=== PATIENT | female | born 1940 | race Caucasian/White ===

== ENCOUNTER → 2016-04-28 | Outpatient (CLI) | payer OTHER | LOC: MMPC 11:11 | DX: E21.3 Hyperparathyroidism, unspecified (principal); F32.9 Major depressive disorder, single episode, unspecified; K21.9 Gastro-esophageal reflux disease without esophagitis; R19.7 Diarrhea, unspecified; R32 Unspecified urinary incontinence; E55.9 Vitamin D deficiency, unspecified; E78.2 Mixed hyperlipidemia | CPT/HCPCS: 99213; G0463 ==

== ENCOUNTER 2016-05-02 12:01 | Emergency (ER) | payer OTHER ==
--- NOTE | 2016-05-02 12:12 | PDOC ---
Upper Respiratory HPI - General Chief Complaint: Cough / URI Stated Complaint: cough Date Seen by Provider: 05/02/16 Time Seen by Provider: 12:09 Source: POSITIVE: Patient Exam Limitations: POSITIVE: No limitations Nurse's Notes Reviewed & Considered: Yes - History of Present Illness Initial Comments: Patient comes in today with a chief clinic of cough. Patient states she's had 3 days of increasing cough that is nonproductive. She denies any headache, no shortness of breath, no chest pain, no nausea vomiting, no fever chills or sweats, no hematuria or dysuria. She states she has chronic diarrhea that is undiagnosed having had a colonoscopy but no definitive diagnosis. She denies any history of asthma or COPD. Timing: REPORTS: Constant Duration: >24 hours Severity: Mild Modifying Factors: improves with: Exertion Similar Symptoms Previously: No Recently seen/treated/hospitalized: No Any Prior Injuries Related to Current Complaint?: No - Patient Home Medications Home Medications: Home Medications Cholecalciferol (Vitamin D3) [Vitamin D3] 1 cap PO DAILY #30 cap 01/31/14 Esomeprazole Magnesium [Nexium] 1 cap PO DAILY #90 cap 07/03/15 Venlafaxine HCl ER [Effexor Xr Cap] 1 cap PO DAILY #90 cap 07/03/15 Atenolol 1 tab PO DAILY #90 tab 08/06/15 Levothyroxine Sodium 1 tab PO DAILY #90 tab 08/07/15 Simvastatin 1 tab PO QD #90 tab 12/31/15 Tolterodine Tartrate [Detrol La] 1 tab PO QD #90 cap 01/07/16 Citalopram Hydrobromide [Citalopram Hbr] 1 tab PO DAILY #90 tab 02/18/16 - Patient Allergies Allergies/Adverse Reactions: Allergies Allergy/AdvReac Type Severity Reaction Status Date / Time codeine AdvReac Severe VOMITING Verified 05/02/16 12:08 Past Medical History - heen HEENT History: Dentures/Partials Cardiovascular History: Hypertension, Hyperlipidemia Respiratory History: Denies History Gastrointestinal History: GERD, Peptic Ulcer Disease Additional Gastrointestinal History: S/P BAYRON FUNDOPLICATION Genitourinary History: Denies History Endocrine History: Denies History, Hyperthyroidism Additional Endocrine History: HYPERPARATHYROIDISM S/P REMOVAL OF LEFT LOWER PARATHYROID ADENOMA IN 2013 Musculoskeletal History: Arthritis, Gout, Osteoarthritis, Other (please comment) Prosthesis or Implant: No Additional Musculoskeletal History: MULTIPLE BILAT FOOT SURGERIES FOR HAMMER TOES AND BUNIONS, LEFT 2ND TOE FUSION OF JOINT Neurological History: Denies History Blood Disorders: Denies History Psychiatric History: Depression History of Sexually Transmitted Diseases: No History of MDRO: No History of Other Communicable Diseases: No Alcohol Use: None Substance Use Type: None Previous Surgical History: Yes Type / Date of Surgery: REMOVAL OF ADENOMA IN 05/2013/ TONSILLECTOMY/ BLAKE/ EGD / HYST/ BAYRON FUNDOPLICATION Anesthesia Reactions: No Malignant Hyperthermia: No Significant Family History: No pertinent family hx ROS - Limitations ROS Limitations: No Limitations Constitution: REPORTS: Denies Symptoms Cardiovascular: REPORTS: Denies Cardiac Symptoms Respiratory: REPORTS: Cough Non Productive Neurological: REPORTS: Denies Neuro Symptoms Gastrointestinal: REPORTS: Diarrhea (Chronic) Endocrine: REPORTS: Denies Symptoms Musculoskeletal: REPORTS: Denies MS Symptoms Genitourinary: REPORTS: Denies Symptoms Eyes: REPORTS: Denies Symptoms ENT: REPORTS: Denies Symptoms Skin: REPORTS: Denies Skin Symptoms Lympathic: REPORTS: Denies Lympathic Symptoms Immunologic: POSITIVE: Denies Symptoms Psychiatric: POSITIVE: Denies Psych Symptoms Upper Respiratory/Fever Exam - General Appearance General Appearance: REPORTS: Alert, Cooperative, No Acute Distress, No Evidence of Trauma - HEENT HEENT: POSITIVE: Head Inspection Nml, Eyes Inspection Nml, Ears Inspection Nml, Nose Inspection Nml, Oral/Dental Inspect. Nml, Pharynx Inspect. Nml, PERRL, EOMI - Neck Neck: REPORTS: Normal Inspection, Supple - Respiratory Respiratory: REPORTS: No Respiratory Distress, Breath Sounds Normal, No Pleuritic Chest Pain, Speaks Full Sentences, No Pain on Inspiration - Abdomen Abdomen: Soft: (All Quadrants), Normal Bowel Sounds: (All Quadrants), Denies Tenderness: (All Quadrants) - Cardiovascular Cardiovascular: REPORTS: Regular Rate and Rhythm, Heart Sounds Normal - Skin Skin: REPORTS: Intact, Normal For Race, Warm, Dry, No Rash - Extremities Extremity: Non-Tender: (All Extremities), Normal ROM: (All Extremities), Normal Inspection: (All Extremities) - Neurological / Psychological Neurological: POSITIVE: Affect Apporpriate, Oriented X3 Upper Resp/Fever Progress - Results Reviewed by me Xrays/CTs/US Reviewed by me: Yes Discussed with Radiologist: No Lab Results Reviewed: Yes Lab Results:: Laboratory Results 05/02/16 Range/Units 12:15 WBC 7.65 (4.8-10.8) 10^3/uL RBC 4.77 (4.20-5.40) 10^6/uL Hgb 14.0 (12.0-16.0) g/dL Hct 42.5 (37.0-47.0) % MCV 89.1 (81-99) FL MCH 29.4 (27-31) PG MCHC 32.9 L (33-37) g/dL RDW Std Deviation 45.1 (39-50) fL RDW Coeff of Luca 14.1 (11.5-14.5) % Plt Count 310 (140-350) 10*3/uL MPV 9.3 (7.4-12.2) FL Immature Gran % (Auto) 0.3 (0-5) % Neut % (Auto) 59.3 (50-80) % Lymph % (Auto) 28.5 (10-50) % [place] % (Auto) 7.8 (5-15) % Eos % (Auto) 3.3 (0-8) % Baso % (Auto) 0.8 (0-1) % Immature Gran # (Auto) 0.02 10*3/UL Neut # (Auto) 4.54 10*3/UL Lymph # (Auto) 2.18 10*3/uL [place] # (Auto) 0.60 (0.3-0.8) 10*3/UL Eos # (Auto) 0.25 10*3/UL Baso # (Auto) 0.06 10*3/UL WBC Morphology Comment Normal morphology (NORM) Plt Morphology Comment Normal morphology (NORM) RBC Morph Comment Normal morphology (NORM) Sodium 138 (135-145) meq/L Potassium 4.5 (3.8-5.2) meq/L Chloride 103 (98-112) meq/L Carbon Dioxide 25 (23-33) meq/L Anion Gap 10 (5-20) BUN 18 (7-22) mg/dL Creatinine 1.2 (0.50-1.20) mg/dL Estimated GFR (>60 ml/min/1.73m(2)) BUN/Creatinine Ratio 15.00 (6-20) Glucose 111 H (78-110) mg/dL Calculated Osmolality 288.0 (267-292) mOsm/kg Calcium 9.9 (8.7-10.7) mg/dL Total Bilirubin 0.5 (0.3-1.2) mg/dL AST 31 (8-39) IU/L ALT 36 (9-52) IU/L Alkaline Phosphatase 123 (38-126) IU/L Total Protein 7.3 (6.1-8.0) g/dL Albumin 4.2 (3.5-4.8) g/dL Globulin 3.1 (2.50-4.10) g/dL Albumin/Globulin Ratio 1.30 (1.3-2.0) mg/g - Patient's Progress Pain Medication Addressed: POSITIVE: Not Applicable Re-Examine Time: 12:58 Status: POSITIVE: Improved MDM / ED Course: Patient was examined, blood drawn, chest x-ray was obtained. Laboratory findings: Unremarkable. Chest x-ray shows no acute cardiopulmonary decompensation. Assessment: Cough, upper respiratory infection probably viral. Plan: Discharge home on albuterol and Phenergan with codeine, follow-up with her primary care physician. Air Movement: Good Patient Care Time - Estimated PCT Patient Care Time (In Minutes): 20 Vital Signs - Recent Vital Signs Vital Signs: Vital Signs (Last 8 hours) Temp Pulse Resp BP Pulse Ox 05/02/16 12:02 96.6 F L 69 18 130/78 95 - VS Reviewed Vital Signs Reviewed: Yes Discharge Clinical Impression: Cough, Upper respiratory infection Discharge Disposition: Discharged to Home Condition: Stable Patient Instructions Given at Discharge: Upper Respiratory Infection (ED)
[2016-05-02 12:15] VITALS: RESP 18; TEMP 96.6
[2016-05-02 12:20] LABS: BASOPHILS # (AUTO) 0.06 10*3/UL; BASOPHILS % (AUTO) 0.8 % (0-1); EOSINOPHILS % (AUTO) 3.3 % (0-8); HEMATOCRIT 42.5 % (37.0-47.0); IMM GRAN % (AUTO) 0.3 % (0-5); IMM GRAN# (AUTO) 0.02 10*3/UL; LYMPHOCYTES # (AUTO) 2.18 10*3/uL; LYMPHOCYTES % (AUTO) 28.5 % (10-50); MEAN CORPUSCULAR HEMOGLOBIN 29.4 PG (27-31); MEAN CORPUSCULAR HGB CONC 32.9 g/dL (33-37); MEAN PLATELET VOLUME 9.3 FL (7.4-12.2); MONOCYTES % (AUTO) 7.8 % (5-15); NEUTROPHILS # (AUTO) 4.54 10*3/UL; NEUTROPHILS % (AUTO) 59.3 % (50-80); RDW COEFFICIENT OF VARIATION 14.1 % (11.5-14.5); RED BLOOD COUNT 4.77 10^6/uL (4.20-5.40); WHITE BLOOD COUNT 7.65 10^3/uL (4.8-10.8)
[2016-05-02 12:21] LABS: PLATELET MORPHOLOGY COMMENT NORMAL MORPHOLOGY (NORM)
[2016-05-02 12:30] LABS: BILIRUBIN,TOTAL 0.5 mg/dL (0.3-1.2); CALCIUM 9.9 mg/dL (8.7-10.7); CREATININE 1.2 mg/dL (0.50-1.20); POTASSIUM 4.5 meq/L (3.8-5.2); TOTAL PROTEIN 7.3 g/dL (6.1-8.0)
--- NOTE | 2016-05-02 15:11 | DI ---
PA /LATERAL CHEST X-RAY, 05/02/2016 12:08 PM : Clinical History: Cough. Previous Exam: None at this facility. On both views the patient took a very shallow inspiration. There is no acute soft tissue or bony abno rmality. Heart size is normal. Lungs are clear. Mediastinal structures are normal. There are no pulmo nary nodules. Reading: Normal chest x-ray for this degree of inspiratory effort.
== END 2016-05-02 13:12 | disposition home or self-care (01) ==
LOC: ER 12:01
DX: J06.9 Acute upper respiratory infection, unspecified (principal); R05 Cough
CPT/HCPCS: 36415; 71020; 80053; 85025; 99283

== ENCOUNTER → 2016-07-28 | Outpatient (CLI) | payer OTHER | LOC: MMPC 11:11 | DX: E21.3 Hyperparathyroidism, unspecified (principal); F32.9 Major depressive disorder, single episode, unspecified; K21.9 Gastro-esophageal reflux disease without esophagitis; R32 Unspecified urinary incontinence; R19.7 Diarrhea, unspecified; E55.9 Vitamin D deficiency, unspecified; E03.9 Hypothyroidism, unspecified | CPT/HCPCS: 99213; G0463 ==

== ENCOUNTER → 2016-11-18 | Outpatient (CLI) | payer OTHER ==
[2016-11-18 12:52] LABS: BUN/CREATININE RATIO 13.63 (6-20); CALCIUM 9.8 mg/dL (8.7-10.7); CHOL/HDL RATIO 1.75 RATIO (0-4.0); LDL CHOLESTEROL,CALCULATED 22.4 mg/dL
== END ==
LOC: MOB LAB 10:19
DX: E78.2 Mixed hyperlipidemia (principal); E21.3 Hyperparathyroidism, unspecified; E03.9 Hypothyroidism, unspecified; I10 Essential (primary) hypertension; E55.9 Vitamin D deficiency, unspecified
CPT/HCPCS: 36415; 80048; 80061; 82306; 84443

== ENCOUNTER 2017-10-03 17:21 | Inpatient (IN) ==
[2017-10-03] MEDS ORDERED: Sodium Chloride 0.9% 1,000 ML PRIMARY IV ONE (17:32)
[2017-10-03 18:06] LABS: BLOOD UREA NITROGEN 21 mg/dL (7-22); LIPASE 47 IU/L (23-300)
[2017-10-03 18:07] LABS: BASOPHILS # (AUTO) 0.03 10*3/UL; BASOPHILS % (AUTO) 0.1 % (0-1); EOSINOPHILS # (AUTO) 0.08 10*3/UL; EOSINOPHILS % (AUTO) 0.4 % (0-8); Hematocrit [HCT] 41.8 % (37.0-47.0); Hemoglobin [HGB] 14.5 g/dL (12.0-16.0); LYMPHOCYTES # (AUTO) 3.96 10*3/uL; MEAN CORPUSCULAR HEMOGLOBIN 30.3 PG (27-31); MEAN CORPUSCULAR HGB CONC 34.7 g/dL (33-37); MEAN CORPUSCULAR VOLUME 87.3 FL (81-99); MEAN PLATELET VOLUME 9.4 FL (7.4-12.2); MONOCYTES # (AUTO) 1.56 10*3/UL (0.3-0.8); MONOCYTES % (AUTO) 6.9 % (5-15); NEUTROPHILS # (AUTO) 16.98 10*3/UL; NEUTROPHILS % (AUTO) 74.8 % (50-80); RED BLOOD COUNT 4.79 10^6/uL (4.20-5.40)
[2017-10-03 18:08] LABS: PLATELET MORPHOLOGY COMMENT NORMAL MORPHOLOGY (NORM); RBC MORPHOLOGY COMMENT NORMAL MORPHOLOGY (NORM); WBC MORPHOLOGY COMMENT NORMAL MORPHOLOGY (NORM)
[2017-10-03 18:15] LABS: BILIRUBIN,URINE NEGATIVE (NEG); CLARITY,URINE CLEAR (CLEAR); COLOR,URINE YELLOW (Y); GLUCOSE, URINE (UA) NEGATIVE (NEG); OCCULT BLOOD,URINE SMALL (NEG); PROTEIN,URINE TRACE mg/dl (NEG)
[2017-10-03 18:17] LABS: BACTERIA,URINE MODERATE; URINE SAMPLE TYPE CATH SPECIMEN; WBC,URINE 20-30
[2017-10-03] MEDS ORDERED: Ertapenem Inj 1 GM in Sodium Chloride 0.9% 100 ML IV ONE (18:23)
--- NOTE | 2017-10-03 20:26 | DI ---
EXAM: CT Abdomen and Pelvis With Intravenous Contrast CLINICAL HISTORY: ITS.REASON Abdominal Pain Physician Notes: Tech Comments: TECHNIQUE: Axial computed tomography images of the abdomen and pelvis with intravenous contrast. COMPARISON: No relevant prior studies available. FINDINGS: Lung bases: Unremarkable. ABDOMEN: Liver: Mild fatty liver. Gallbladder and bile ducts: The gallbladder is absent. Pancreas: Unremarkable. Spleen: Unremarkable. Adrenals: Unremarkable. Kidneys and ureters: Unremarkable. No hydronephrosis. Stomach and bowel: Thickening in the cecum - proximal ascending colon. Small hiatal hernia. Surgical changes at the GE junction. PELVIS: Appendix: No findings to suggest acute appendicitis. Bladder: Few foci of air in the bladder. Reproductive: Hysterectomy. ABDOMEN and PELVIS: Intraperitoneal space: Unremarkable. Bones/joints: No acute fracture. Soft tissues: Unremarkable. Vasculature: Unremarkable. No abdominal aortic aneurysm. Lymph nodes: No enlarged lymph nodes. IMPRESSION: 1. Thickening in the cecum - proximal ascending colon. Could be from colitis/typhlitis or underlying lesion. 2. Few foci of air in the bladder. Could be from of recent instrumentation, infection with gas forming organism. No distinct fistula identified.
--- NOTE | 2017-10-03 21:45 | PDOC ---
HPI - History of Present Illness Date of Service: 10/03/17 Chief Complaint: Abdominal pain History of Present Illness: This very nice 77-year-old female who started having some abdominal pain across all of her abdomen last evening comes to the ER today to have it evaluated she denies dysuria hematuria no nausea no vomiting no chest pain on further evaluation was found to have some descending colon thickening and other findings on CT scan including some air in the bladder I discussed this with Dr. Clay Walker no acute things to do at present time. He admitted for UTI since that she had a positive UA and a white count of 22,000 C with Invanz in the ER Past Medical History Medical History: Hypertension, depression, GERD, Tobacco Use: Never Smoker In the Past 12 Months, Have Used or Abuse Any of the Following Substance: None Medication / Allergies Home Medications: Home Medications 3 Medication Instructions Recorded Confirmed Type Cholecalciferol (Vitamin D3) 1 cap PO DAILY #30 cap 01/31/14 10/03/17 History [Vitamin D3] atenolol 50 mg tablet 50 mg PO QD #90 tab 03/16/17 10/03/17 Rx esomeprazole magnesium 20 mg 20 mg PO QD #90 cap 03/16/17 10/03/17 Rx capsule,delayed release levothyroxine 50 mcg tablet 50 mcg PO QD #90 tab 03/16/17 10/03/17 Rx tolterodine ER 4 mg 4 mg PO QD #90 cap 03/16/17 10/03/17 Rx capsule,extended release 24 hr venlafaxine ER 75 mg 75 mg PO QDAY #90 cap 03/16/17 10/03/17 Rx capsule,extended release 24 hr potassium chloride ER 20 mEq 20 meq PO QDAY #1 tab 08/02/17 10/03/17 Rx tablet,extended release blood-glucose meter See Dose Instructions .ROUTE 08/04/17 Rx .MEDSUPPLY #1 ea lancets 33 gauge See Dose Instructions .ROUTE 08/06/17 08/06/17 Rx .MEDSUPPLY #100 ea blood sugar diagnostic strips See Dose Instructions .ROUTE 08/12/17 Rx .MEDSUPPLY #100 ea blood sugar diagnostic strips See Dose Instructions .ROUTE 08/12/17 Rx .MEDSUPPLY #50 ea blood glucose control, normal See Dose Instructions .ROUTE 08/18/17 Rx solution .MEDSUPPLY #1 ea lancets 30 gauge See Dose Instructions .ROUTE 08/18/17 Rx .MEDSUPPLY #100 ea Allergies/Adverse Reactions: Allergies 3 Allergy/AdvReac Type Severity Reaction Status Date / Time codeine AdvReac Severe VOMITING Verified 10/03/17 22:16 Review of Systems - Review of Systems All Systems: Reviewed & No Additional Complaints Except as Stated - Respiratory Respiratory: DENIES: Negative System Review, Cough, Sputum, Dyspnea At Rest, Dyspnea with Exertion, Pleuritic Pain, Hemoptysis, Wheezing, Other, See HPI - Cardiovascular Cardiovascular: DENIES: Negative System Review, Chest Pain, Edema, Syncope, Palpitations, Orthopnea, Paroxysmal Nocturnal Dyspnea, Other, See HPI - Gastrointestinal Gastrointestinal / Abdominal: REPORTS: Abdominal Pain Exam - Vitals Vital Signs: Vital Signs Temperature 97.4 F Temperature Source Temporal Artery Scan Pulse Rate [Pulse Oximeter 79 Right] Respiratory Rate 16 Blood Pressure [Left Arm] 131/75 Pulse Ox 96 Oxygen Delivery Method Room Air Height 5 ft 4 in Weight 210 lb - General General Appearance: No Acute Distress, Cooperative - Eye Eye Exam: POSITIVE: Normal Appearance, PERRL, EOMI, No Scleral Icterus - Neck Neck Exam: Normal Inspection, Full ROM, No Tenderness, No Lymphadenopathy, No Thyromegaly, JVP is not Raised - Respiratory Respiratory Exam: POSITIVE: Clear to Auscultation - Bilaterally, Breathing Non Labored, Normal To Percussion, Normal to Percussion and Palpation - Cardiovascular Cardiovascular Exam: POSITIVE: RRR, No Murmur, No Clicks, No Gallops, No Rubs, PMI Non-Displaced - GI/Abdominal GI/Abdominal Exam: POSITIVE: Non Distended, Soft, No Masses, Positive for RUQ Pain, No Hepatomegaly, No Splenomegaly. NEGATIVE: Bruit, Distended, Guarding, Diminished Bowel Sounds, Hypoactive Bowel Sounds, Mass, Pulsatile Mass, Rebound , Rigid, Positive for Ascites, Hepatomegaly Additional GI/Abdominal Exam Details: She only has pain on the mid right upper area when pressed on a specific spot no CVA tenderness or other pain anywhere also in her abdomen is soft - Extremities Extremities Exam: POSITIVE: Normal Inspection, Full ROM, Normal Capillary Refill , No Clubbing Present, No Edema Present, No Cyanosis Present, Negative Elise's sign, Dosalis Pedis Pulses - Stong & Regular - Neurological Neurological Exam: POSITIVE: Alert, Oriented x 3, Reflexes Normal, Normal Gait, CN II-XII Intact, No Facial Droop, Speech Intact / Clear, Moves All Extremities Equally, No Fasciculations, No Clonus Results - Labs CBC and BMP: 10/03/17 17:33 10/03/17 17:33 Assessment and Plan - Patient Problems (1) UTI (urinary tract infection) Current Visit: Yes Status: Acute Comment: invanz 1 g daily Code(s): N39.0 - Urinary tract infection, site not specified (2) Hypomagnesemia Current Visit: Yes Status: Acute Comment: 2 Grams IV Code(s): E83.42 - Hypomagnesemia (3) Hypokalemia Current Visit: Yes Status: Acute Comment: Place with normal saline +20 K at 75 Code(s): E87.6 - Hypokalemia
[2017-10-03] MEDS ORDERED: DOCUSATE 100 MG CAPSULE PO PRN (22:01)
[2017-10-03] MEDS ORDERED: LIDOCAINE W/ SODIUM BICARB 0.5 ML SYR SUBD PRN (22:01)
[2017-10-03] MEDS ORDERED: MORPHINE SULFATE 2 MG/1 ML IVP PRN (22:01)
[2017-10-03] MEDS ORDERED: CALCIUM CARBONATE 500 MG (TUMS) CHEWABLE TABLET PO PRN (22:01)
[2017-10-03] MEDS ORDERED: ACETAMINOPHEN 325 MG TABLET PO PRN (22:01)
[2017-10-03] MEDS ORDERED: ONDANSETRON 4 MG/2 ML VIAL IVP PRN (22:01)
[2017-10-03] MEDS: HEPARIN 5000 UNIT/1 ML SUBCUT SCH (22:29)
[2017-10-03] MEDS ORDERED: Magnesium Sulfate 2gm (Premix) 2 GM/50 ML BAG IV ONE (23:52)
--- NOTE | 2017-10-04 02:33 | PDOC ---
Abdomen/Flank HPI - General Chief Complaint: Abdomen Pain Stated Complaint: ABD PAIN WORSE TO RLQ SINCE YESTERDAY Date Seen by Provider: 10/03/17 Time Seen by Provider: 17:20 Source: POSITIVE: Patient, Other (daughter) Exam Limitations: POSITIVE: No limitations Nurse's Notes Reviewed & Considered: Yes - History of Present Illness Initial Comments: The patient is a 77-year-old female who presents to the emergency room with her daughter. Patient states that for the past 24 hours she has had lower abdominal pain, right greater than left. No vomiting. No diarrhea, melena, hematochezia, hematemesis, dysuria or hematuria. No fevers. Patient has had a cholecystectomy and hysterectomy. She last ate about 24 hours [employer]. Patient has had surgery for gastroesophageal reflux. Patient states that the pain presently is somewhat less than it was earlier in the day. Body Location Affected: REPORTS: Abdomen Timing: REPORTS: Constant Duration: <24 hours (Approximately 24 hours) Severity: Moderate Quality: REPORTS: "Pain" Abdominal Pain Onset Location: REPORTS: RUQ, LUQ Abdominal Pain Radiation: REPORTS: No radiation Context: REPORTS: None Modifying Factors: improves with: Nothing Associated Symptoms: REPORTS: Denies symptoms Similar Symptoms Previously: No Recent Care Received: REPORTS: Denies Any Prior Injuries Related to Current Complaint?: No - Patient Home Medications Home Medications: Home Medications Cholecalciferol (Vitamin D3) [Vitamin D3] 1 cap PO DAILY #30 cap 01/31/14 atenolol 50 mg tablet 50 mg PO QD #90 tab 03/16/17 esomeprazole magnesium 20 mg capsule,delayed release 20 mg PO QD #90 cap levothyroxine 50 mcg tablet 50 mcg PO QD #90 tab 03/16/17 tolterodine ER 4 mg capsule,extended release 24 hr 4 mg PO QD #90 cap 03/16/17 venlafaxine ER 75 mg capsule,extended release 24 hr 75 mg PO QDAY #90 cap potassium chloride ER 20 mEq tablet,extended release 20 meq PO QDAY #1 tab 08/02 blood-glucose meter See Dose Instructions .ROUTE .MEDSUPPLY #1 ea 08/04/17 lancets 33 gauge See Dose Instructions .ROUTE .MEDSUPPLY #100 ea 08/06/17 blood sugar diagnostic strips See Dose Instructions .ROUTE .MEDSUPPLY #100 ea blood sugar diagnostic strips See Dose Instructions .ROUTE .MEDSUPPLY #50 ea 06/27 blood glucose control, normal solution See Dose Instructions .ROUTE .MEDSUPPLY # 1 ea 08/18/17 lancets 30 gauge See Dose Instructions .ROUTE .MEDSUPPLY #100 ea 08/18/17 - Patient Allergies Allergies/Adverse Reactions: Allergies 3 Allergy/AdvReac Type Severity Reaction Status Date / Time codeine AdvReac Severe VOMITING Verified 10/03/17 22:16 Past Medical History - heen HEENT History: Dentures/Partials Cardiovascular History: Hypertension, Hyperlipidemia Respiratory History: Denies History Additional Respiratory History: former smoker, quit 45 yrs ago Gastrointestinal History: GERD, Peptic Ulcer Disease Additional Gastrointestinal History: S/P BAYRON FUNDOPLICATION Genitourinary History: Denies History Endocrine History: Type 2 Diabetes (diet), Hyperthyroidism Additional Endocrine History: HYPERPARATHYROIDISM S/P REMOVAL OF LEFT LOWER PARATHYROID ADENOMA IN 2013 Musculoskeletal History: Arthritis, Gout, Osteoarthritis, Other (please comment) Prosthesis or Implant: No Additional Musculoskeletal History: MULTIPLE BILAT FOOT SURGERIES FOR HAMMER TOES AND BUNIONS, LEFT 2ND TOE FUSION OF JOINT Neurological History: Denies History Blood Disorders: Denies History Psychiatric History: Depression History of Sexually Transmitted Diseases: No Female Reproductive History: Denies History Obstetrical History: Denies History Cancer History: Other (please comment) In Past Year Been Physically Harmed or Verbally Threatened: No History of MDRO: No History of Other Communicable Diseases: No Tobacco Use: Never Smoker Alcohol Use: None In the Past 12 Months, Have Used or Abuse Any Substance: None Previous Surgical History: Yes Type / Date of Surgery: REMOVAL OF ADENOMA IN 05/2013/ TONSILLECTOMY/ BLAKE/ EGD / HYST/ BAYRON FUNDOPLICATION Anesthesia Reactions: No Malignant Hyperthermia: No Significant Family History: No pertinent family hx Past Medical History Reviewed: Reviewed - No Changes ROS - Limitations ROS Limitations: No Limitations Constitution: REPORTS: Denies Symptoms Cardiovascular: REPORTS: Denies Cardiac Symptoms Respiratory: REPORTS: Denies Resp Symptoms Neurological: REPORTS: Denies Neuro Symptoms Gastrointestinal: REPORTS: Abdominal Pain Endocrine: REPORTS: Denies Symptoms Musculoskeletal: REPORTS: Denies MS Symptoms Genitourinary: REPORTS: Denies Symptoms Eyes: REPORTS: Denies Symptoms ENT: REPORTS: Denies Symptoms Skin: REPORTS: Denies Skin Symptoms Lympathic: REPORTS: Denies Lympathic Symptoms Immunologic: POSITIVE: Denies Symptoms Psychiatric: POSITIVE: Denies Psych Symptoms Abdominal/Flank Pain PE - General Appearance General Appearance: POSITIVE: Alert, Cooperative, No Acute Distress, No Evidence of Trauma - HEENT HEENT: POSITIVE: Head Inspection Nml, Eyes Inspection Nml, Ears Inspection Nml, Nose Inspection Nml, Oral/Dental Inspect. Nml, Pharynx Inspect. Nml, PERRL, EOMI - Neck Neck: POSITIVE: Normal Inspection, No Apparent Injury - Respiratory Respiratory: POSITIVE: No Respiratory Distress, Breath Sounds Normal, Chest Non- Tender - Cardiovascular Cardiovascular: POSITIVE: Regular Rate and Rhythm, Heart Sounds Normal, Equal Pulses, Strong Pulses Peripheral Pulses: Radial (R): 2+, Radial (L): 2+ - Chest Chest: POSITIVE: Non Tender - Abdomen Abdomen: Soft: (All Quadrants), Normal Bowel Sounds: (All Quadrants), Denies Tenderness: (RUQ), (LUQ), No Splenomegaly: (All Quadrants), No Hepatomegaly: ( All Quadrants), No Guarding: (All Quadrants), No Rebound: (All Quadrants), No Palpable Pulse: (All Quadrants), No Palpabale Mass: (All Quadrants), No Distention: (All Quadrants), No Rigidity: (All Quadrants), Tenderness Noted: ( RLQ), (LLQ) Additional Abdominal Details: Abdominal examination shows bowel sounds to be active. Patient does complain of pain on direct palpation in the lower abdomen, especially right lower quadrant. No masses, organomegaly or rebound. - Back Back: POSITIVE: Normal Inspection. NEGATIVE: CVA Tenderness (R), CVA Tenderness (L) - Skin Skin: POSITIVE: Intact, Normal For Race, Warm, Dry, No Rash - Extremities Extremity: Non-Tender: (All Extremities), Normal ROM: (All Extremities), Normal Inspection: (All Extremities) - Neurological Neurological: POSITIVE: Affect Apporpriate, Oriented X3, executive administrative asst Normal As Tested, Motor Normal, Sensation Normal - Psychological Psychiatric: POSITIVE: Affect Appropriate, Mood Appropriate Images - Complete Complete: 1 - Area of described pain Abdomen Progress - Results Reviewed by me Xrays/CTs/US Reviewed by me: Yes Discussed with Radiologist: Yes Radiology Findings: CT scan abdomen with IV contrast read by radiologist as showing some thickening of the cecum and proximal ascending colon compatible with colitis/typhlitis Lab Results Reviewed by Me: Yes (pyuria on catheterized urinalysis; white blood cell count 22,700) CBC and BMP: 10/03/17 17:33 10/03/17 17:33 Lab Results:: Laboratory Results 3 10/03/17 10/03/17 10/03/17 17:33 17:33 17:33 WBC 22.70 H RBC 4.79 Hgb 14.5 Hct 41.8 MCV 87.3 MCH 30.3 MCHC 34.7 RDW Std Deviation 43.0 RDW Coeff of Luca 13.6 Plt Count 345 MPV 9.4 Immature Gran % (Auto) 0.4 Neut % (Auto) 74.8 Lymph % (Auto) 17.4 [place] % (Auto) 6.9 Eos % (Auto) 0.4 Baso % (Auto) 0.1 Immature Gran # (Auto) 0.09 Neut # (Auto) 16.98 Lymph # (Auto) 3.96 [place] # (Auto) 1.56 H Eos # (Auto) 0.08 Baso # (Auto) 0.03 WBC Morphology Comment Normal morphology Plt Morphology Comment Normal morphology RBC Morph Comment Normal morphology Sodium 135 Potassium 3.0 L Chloride 95 L Carbon Dioxide 27 Anion Gap 13 BUN 21 Creatinine 1.0 BUN/Creatinine Ratio 21.00 H Glucose 139 H Calculated Osmolality 284.0 Lactic Acid Calcium 10.1 Magnesium Total Bilirubin 1.1 AST 30 ALT 37 Alkaline Phosphatase 99 Total Protein 7.1 Albumin 4.0 Globulin 3.1 Albumin/Globulin Ratio 1.20 L Amylase 59 Lipase 47 Ur Collection Type Cath specimen Urine Color Yellow Urine Clarity Clear Urine pH 6.0 Ur Specific [place] 1.020 Urine Protein Trace Urine Glucose (UA) Negative Urine Ketones Negative Urine Occult Blood Small H Urine Nitrate Negative Urine Bilirubin Negative Urine Urobilinogen 2.0 Ur Leukocyte Esterase Trace Urine RBC 3-5 Urine WBC 20-30 Ur Squamous Epith Cells None Ur Renal Epithelial Cell None Urine Crystals None Urine Bacteria Moderate H Urine Casts None Urine Mucus None Urine Trichomonas None Urine Yeast None Ur Culture Indicated? Culture set 3 10/03/17 10/03/17 17:33 18:20 WBC RBC Hgb Hct MCV MCH MCHC RDW Std Deviation RDW Coeff of [place] Plt Count MPV Immature Gran % (Auto) Neut % (Auto) Lymph % (Auto) [place] % (Auto) Eos % (Auto) Baso % (Auto) Immature Gran # (Auto) Neut # (Auto) Lymph # (Auto) [place] # (Auto) Eos # (Auto) Baso # (Auto) WBC Morphology Comment Plt Morphology Comment RBC Morph Comment Sodium Potassium Chloride Carbon Dioxide Anion Gap BUN Creatinine BUN/Creatinine Ratio Glucose Calculated Osmolality Lactic Acid 1.5 Calcium Magnesium 1.4 L Total Bilirubin AST ALT Alkaline Phosphatase Total Protein Albumin Globulin Albumin/Globulin Ratio Amylase Lipase Ur Collection Type Urine Color Urine Clarity Urine pH Ur Specific [place] Urine Protein Urine Glucose (UA) Urine Ketones Urine Occult Blood Urine Nitrate Urine Bilirubin Urine Urobilinogen Ur Leukocyte Esterase Urine RBC Urine WBC Ur Squamous Epith Cells Ur Renal Epithelial Cell Urine Crystals Urine Bacteria Urine Casts Urine Mucus Urine Trichomonas Urine Yeast Ur Culture Indicated? - Patient's Progress Pain Medication Addressed: POSITIVE: Patient Refused School/Work Release Addressed: POSITIVE: Not Applicable Re-examine Time: 20:25 Re-Examine Comment: 2 blood cultures drawn and urine culture pending. Patient given a gram of Invanz in the emergency room. Case discussed with , hospitalist, and patient will be admitted for further evaluation and treatment. Status: POSITIVE: Improved, Re-Examined - Consult Counseled: POSITIVE: Patient, Family, RE: Lab Results, RE: Radiology Results, RE : DX, RE: Need for F/U Patient Care Time - Estimated PCT Patient Care Time (In Minutes): 60 Vital Signs - Recent Vital Signs Vital Signs: Vital Signs (Last 8 hours) Temp Pulse Pulse Resp BP Pulse Ox 10/04/17 00:41 98.0 F 78 20 125/59 94 10/03/17 22:10 97.5 F 105 H 21 144/78 93 10/03/17 22:02 94 - VS Reviewed Vital Signs Reviewed: Yes Discharge Clinical Impression: Abdominal pain, Urinary tract infection Discharge Disposition: Admit to Inpatient Condition: Stable Date Decision to Admit to Inpatient: 10/03/17 Time Decision to Admit to Inpatient: 20:45
[2017-10-04] MEDS: LEVOTHYROXINE 50 MCG TABLET PO SCH (04:57)
[2017-10-04] MEDS: HEPARIN 5000 UNIT/1 ML SUBCUT SCH ×3 (05:00→21:10)
[2017-10-04 05:11] LABS: BASOPHILS # (AUTO) 0.04 10*3/UL; BASOPHILS % (AUTO) 0.2 % (0-1); EOSINOPHILS # (AUTO) 0.13 10*3/UL; EOSINOPHILS % (AUTO) 0.7 % (0-8); Hematocrit [HCT] 39.8 % (37.0-47.0); Hemoglobin [HGB] 13.7 g/dL (12.0-16.0); LYMPHOCYTES # (AUTO) 4.27 10*3/uL; MEAN CORPUSCULAR HEMOGLOBIN 30.6 PG (27-31); MEAN CORPUSCULAR HGB CONC 34.4 g/dL (33-37); MEAN CORPUSCULAR VOLUME 88.8 FL (81-99); MEAN PLATELET VOLUME 9.6 FL (7.4-12.2); MONOCYTES # (AUTO) 1.35 10*3/UL (0.3-0.8); MONOCYTES % (AUTO) 7.4 % (5-15); NEUTROPHILS # (AUTO) 12.47 10*3/UL; RED BLOOD COUNT 4.48 10^6/uL (4.20-5.40)
[2017-10-04 05:14] LABS: PLATELET MORPHOLOGY COMMENT NORMAL MORPHOLOGY (NORM); RBC MORPHOLOGY COMMENT NORMAL MORPHOLOGY (NORM); WBC MORPHOLOGY COMMENT NORMAL MORPHOLOGY (NORM)
[2017-10-04 05:31] LABS: BLOOD UREA NITROGEN 18 mg/dL (7-22); SERUM ALBUMIN 3.4 g/dL (3.5-4.8)
[2017-10-04] MEDS: Ertapenem Inj 1 GM in Sodium Chloride 0.9% 100 ML IV SCH (08:45)
[2017-10-04] MEDS: ATENOLOL 50 MG TABLET PO SCH (08:46)
[2017-10-04] MEDS: VENLAFAXINE XR 75 MG CAP PO SCH (08:46)
[2017-10-04] MEDS: CHOLECALCIFEROL 1000 IU TABLET PO SCH (08:46)
[2017-10-04] MEDS: Esomeprazole DR 20mg Capsule PO SCH (08:46)
[2017-10-04] MEDS: Tolterodine LA Cap 4 MG CAP PO SCH (08:46)
[2017-10-04] MEDS: POTASSIUM CHLORIDE 20 MEQ TAB PO SCH ×2 (08:46→21:09)
[2017-10-04] MEDS ORDERED: POTASSIUM CHLORIDE 20 MEQ TAB PO SCH (09:00)
--- NOTE | 2017-10-04 11:25 | PDOC(PROG) ---
Interval History: Patient is doing much better today more feels more like her baseline less pain in her right middle upper quadrant quadrant even on palpation no nausea or vomiting Objective : Data - Labs CBC and BMP: 10/04/17 04:47 10/04/17 04:47 Objective : Exam - General General Appearance: No Acute Distress, Cooperative - Head Head Exam: Normal Inspection - Respiratory Respiratory Exam: Clear to Auscultation - Bilaterally, Breathing Non Labored, Normal To Percussion, Normal to Percussion and Palpation - Cardiovascular Cardiovascular Exam: RRR, No Murmur, No Clicks, No Gallops, No Rubs, PMI Non- Displaced - GI/Abdominal Additional GI/Abdominal Exam Details: Very mild right upper middle quadrant pain no guarding or rebound - Extremities Extremities Exam: No Clubbing Present, No Edema Present, No Cyanosis Present - Neurological Neurological Exam: Alert, Oriented x 3, Reflexes Normal, Normal Gait, CN II-XII Intact, No Facial Droop, Moves All Extremities Equally Assessment and Plan - Patient Problems (1) Colitis Current Visit: Yes Status: Acute Comment: Continue Invanz 1 g daily discussed with general surgery and Dr. Malone radiology most likely colitis as per Dr. Walker she will be following up with him as an outpatient she will need 3 days of IV antibiotics and then 10 days of oral and follow up with him before the end of her course. I let the patient know this. Code(s): K52.9 - Noninfective gastroenteritis and colitis, unspecified (2) UTI (urinary tract infection) Current Visit: Yes Status: Acute Comment: Continue Invanz 1 g daily Code(s): N39.0 - Urinary tract infection, site not specified (3) Hypomagnesemia Current Visit: Yes Status: Acute Comment: Replaced Code(s): E83.42 - Hypomagnesemia (4) Hypokalemia Current Visit: Yes Status: Acute Comment: Replacing with IV fluids Code(s): E87.6 - Hypokalemia
[2017-10-05] MEDS: LEVOTHYROXINE 50 MCG TABLET PO SCH (04:55)
[2017-10-05] MEDS: HEPARIN 5000 UNIT/1 ML SUBCUT SCH ×3 (05:00→21:12)
[2017-10-05 06:43] LABS: BASOPHILS # (AUTO) 0.04 10*3/UL; BASOPHILS % (AUTO) 0.3 % (0-1); EOSINOPHILS # (AUTO) 0.45 10*3/UL; EOSINOPHILS % (AUTO) 3.5 % (0-8); Hematocrit [HCT] 39.3 % (37.0-47.0); Hemoglobin [HGB] 13.2 g/dL (12.0-16.0); LYMPHOCYTES # (AUTO) 3.94 10*3/uL; MEAN CORPUSCULAR HEMOGLOBIN 30.2 PG (27-31); MEAN CORPUSCULAR HGB CONC 33.6 g/dL (33-37); MEAN CORPUSCULAR VOLUME 89.9 FL (81-99); MEAN PLATELET VOLUME 9.1 FL (7.4-12.2); MONOCYTES # (AUTO) 0.94 10*3/UL (0.3-0.8); MONOCYTES % (AUTO) 7.3 % (5-15); NEUTROPHILS # (AUTO) 7.38 10*3/UL; NEUTROPHILS % (AUTO) 57.6 % (50-80); RED BLOOD COUNT 4.37 10^6/uL (4.20-5.40)
[2017-10-05 06:50] LABS: PLATELET MORPHOLOGY COMMENT NORMAL MORPHOLOGY (NORM); RBC MORPHOLOGY COMMENT NORMAL MORPHOLOGY (NORM); WBC MORPHOLOGY COMMENT NORMAL MORPHOLOGY (NORM)
[2017-10-05 07:08] LABS: BLOOD UREA NITROGEN 15 mg/dL (7-22); BUN/CREATININE RATIO 16.66 (6-20); SERUM ALBUMIN 3.2 g/dL (3.5-4.8)
[2017-10-05] MEDS: Ertapenem Inj 1 GM in Sodium Chloride 0.9% 100 ML IV SCH (08:30)
--- NOTE | 2017-10-05 10:54 | PDOC(PROG) ---
Date and Time of Service: 10/05/2017 1050 AM Interval History: Subjective Patient came into the hospital with history of abdominal pain that started first on Wednesday was diffuse vomiting and on Wednesday was more towards the right side of the abdomen and because of that she came into the hospital. A CT of the abdomen did show colitis or typhlitis of the right cecum she was admitted to the hospital started on IV antibiotics. She denied urinary symptoms. She said she feels better today than before no abdominal pain the area is somewhat tender but not as before. She did say that she had diarrhea yesterday and today although she said she's been having diarrhea for a long time and she recently started using Rafa fiber. She is hungry she wants to eat. She wants to go home today. Objective : Data - Labs CBC and BMP: 10/05/17 06:41 10/05/17 06:41 Objective : Exam - General General Appearance: No Acute Distress, Cooperative, Obese - Head Head Exam: Normal Inspection - Eye Eye Exam: Normal Appearance - ENT ENT Exam: Normal Exam - Respiratory Respiratory Exam: Clear to Auscultation - Bilaterally - Cardiovascular Cardiovascular Exam: RRR - GI/Abdominal GI/Abdominal Exam: Normal Bowel Sounds, Non Tender, Non Distended, Soft, No Organomegaly Additional GI/Abdominal Exam Details: Abdomen is soft there is no significant tenderness in the abdomen. There is no rebound. - Rectal Rectal Exam: Deferred - External Exam: Deferred Exam: Deferred - Extremities Extremities Exam: Normal Inspection - Back Back Exam: Normal Inspection - Neurological Neurological Exam: Alert, Oriented x 3, CN II-XII Intact, No Facial Droop, Speech Intact / Clear, Moves All Extremities Equally - Psychiatric Psychiatric Exam: Normal Affect - Integumentary Integumentary Exam: Normal Color Assessment and Plan - Patient Problems (1) Colitis Current Visit: Yes Status: Acute Comment: She was started on antibiotics with Invanz will continue. Etiology is not clear. This was discussed with Dr. Walker by Dr. Ramirez and he recommended seeing her as an outpatient. We'll book her an appointment once we discharge her home. I think will give another dose of IV tomorrow maybe home tomorrow. Will advance her diet today. Will send stool for C. difficile. I did convince her to stay another day. Code(s): K52.9 - Noninfective gastroenteritis and colitis, unspecified (2) UTI (urinary tract infection) Current Visit: Yes Status: Acute Comment: There is growth of gram-negative bacilli in the urine continue current antibiotics. Code(s): N39.0 - Urinary tract infection, site not specified (3) Hypomagnesemia Current Visit: Yes Status: Acute Comment: This was replaced Code(s): E83.42 - Hypomagnesemia (4) Hypokalemia Current Visit: Yes Status: Acute Comment: This was replaced Code(s): E87.6 - Hypokalemia (5) Hypothyroidism Current Visit: Yes Status: Acute Comment: Same medications Code(s): E03.9 - Hypothyroidism, unspecified (6) Hypertension Current Visit: Yes Status: Acute Comment: Continue atenolol Code(s): I10 - Essential (primary) hypertension (7) Depression Current Visit: No Status: Acute Onset Date: 07/13/13 Comment: Continue Effexor Code(s): F32.9 - Major depressive disorder, single episode, unspecified Qualifiers: Depression Type: major depressive disorder Major depression recurrence: recurrent Active/Remission status: in full remission Qualified Code(s): F33.42 - Major depressive disorder, recurrent, in full remission
[2017-10-05] MEDS: ATENOLOL 50 MG TABLET PO SCH (11:02)
[2017-10-05] MEDS: VENLAFAXINE XR 75 MG CAP PO SCH (11:02)
[2017-10-05] MEDS: Esomeprazole DR 20mg Capsule PO SCH (11:02)
[2017-10-05] MEDS: Tolterodine LA Cap 4 MG CAP PO SCH (11:02)
[2017-10-05] MEDS: CHOLECALCIFEROL 1000 IU TABLET PO SCH (11:02)
[2017-10-05] MEDS: POTASSIUM CHLORIDE 20 MEQ TAB PO SCH (11:18)
[2017-10-06] MEDS: LEVOTHYROXINE 50 MCG TABLET PO SCH (05:11)
[2017-10-06] MEDS: HEPARIN 5000 UNIT/1 ML SUBCUT SCH (05:12)
[2017-10-06 05:22] LABS: BASOPHILS # (AUTO) 0.04 10*3/UL; BASOPHILS % (AUTO) 0.3 % (0-1); EOSINOPHILS # (AUTO) 0.44 10*3/UL; EOSINOPHILS % (AUTO) 3.5 % (0-8); Hematocrit [HCT] 38.8 % (37.0-47.0); Hemoglobin [HGB] 13.1 g/dL (12.0-16.0); LYMPHOCYTES # (AUTO) 3.57 10*3/uL; MEAN CORPUSCULAR HEMOGLOBIN 30.3 PG (27-31); MEAN CORPUSCULAR HGB CONC 33.8 g/dL (33-37); MEAN CORPUSCULAR VOLUME 89.8 FL (81-99); MEAN PLATELET VOLUME 9.2 FL (7.4-12.2); MONOCYTES # (AUTO) 0.91 10*3/UL (0.3-0.8); MONOCYTES % (AUTO) 7.3 % (5-15); NEUTROPHILS # (AUTO) 7.51 10*3/UL; NEUTROPHILS % (AUTO) 59.9 % (50-80); RED BLOOD COUNT 4.32 10^6/uL (4.20-5.40)
[2017-10-06 05:33] LABS: PLATELET MORPHOLOGY COMMENT NORMAL MORPHOLOGY (NORM); RBC MORPHOLOGY COMMENT NORMAL MORPHOLOGY (NORM); WBC MORPHOLOGY COMMENT NORMAL MORPHOLOGY (NORM)
[2017-10-06 06:45] VITALS: BP 136/67; RESP 16; TEMP 97.8; O2SAT 95
[2017-10-06] MEDS: Esomeprazole DR 20mg Capsule PO SCH (09:21)
[2017-10-06] MEDS: ATENOLOL 50 MG TABLET PO SCH (09:21)
[2017-10-06] MEDS: CHOLECALCIFEROL 1000 IU TABLET PO SCH (09:21)
[2017-10-06] MEDS: Tolterodine LA Cap 4 MG CAP PO SCH (09:22)
[2017-10-06] MEDS: Ertapenem Inj 1 GM in Sodium Chloride 0.9% 100 ML IV SCH (09:22)
[2017-10-06] MEDS: VENLAFAXINE XR 75 MG CAP PO SCH (09:22)
--- NOTE | 2017-10-06 09:47 | DCSUMMARY ---
Hospitalization Summary Admit Date: 10/03/2017 Discharge Date: 10/06/17 Hospital Course: Discharge diagnoses 1. Thickening in the cecum and proximal ascending colon could be typhlitis or colitis 2. Urinary tract infection 3. Hypertension 4. Depression 5. Hypothyroidism 6. History of GERD Hospital course This is a 77 years old female with medical history significant for history of hypertension, depression and hypothyroidism who came into the hospital with history of abdominal pain felt across the abdomen that started the day before admission. The pain then felt more in the right side of the abdomen because of the pain itself and the severity of it she came into the ER. The CT scan of the abdomen showed thickening of the cecum and proximal ascending colon could be typhlitis or colitis there were also some air in the bladder itself, the patient though denied urinary symptoms. the patient was admitted to the hospital by Dr. Ramirez please see his note. Her white count was elevated 22,000 when she came in. Blood culture was sent and addition to urine culture. She was started on Invanz. Gradually her symptoms started to improve and the white count also started to come down. I saw the patient on the her white count went down to 12,000 she denied pain she was not getting any pain medication. We advanced her diet kept her for another day . On on the day of discharge she still was feeling better denied complaint. There was no tenderness in the abdomen. We felt that she could be discharged home on oral course of antibiotics. She will need follow-up with Dr. Walker and her PCP. Urine culture did show growth of Escherichia coli. She did get 3 days of Invanz for it. The etiology of the colitis/typhlitis is not clear. I did send a C. difficile and that was negative. She will follow-up with Dr. Walker and then decide if she need to have a colonoscopy down the road. Laboratory Results 10/06/17 Range/Units 05:15 WBC 12.53 H (4.8-10.8) 10^3/uL RBC 4.32 (4.20-5.40) 10^6/uL Hgb 13.1 (12.0-16.0) g/dL Hct 38.8 (37.0-47.0) % MCV 89.8 (81-99) [place] MCH 30.3 (27-31) PG MCHC 33.8 (33-37) g/dL RDW Std Deviation 42.9 (39-50) fL RDW Coeff of Luca 13.3 (11.5-14.5) % Plt Count 297 (140-350) 10*3/uL MPV 9.2 (7.4-12.2) [place] Immature Gran % (Auto) 0.5 (0-5) % Neut % (Auto) 59.9 (50-80) % Lymph % (Auto) 28.5 (10-50) % [place] % (Auto) 7.3 (5-15) % Eos % (Auto) 3.5 (0-8) % Baso % (Auto) 0.3 (0-1) % Immature Gran # (Auto) 0.06 10*3/UL Neut # (Auto) 7.51 10*3/UL Lymph # (Auto) 3.57 10*3/uL [place] # (Auto) 0.91 H (0.3-0.8) 10*3/UL Eos # (Auto) 0.44 10*3/UL Baso # (Auto) 0.04 10*3/UL WBC Morphology Comment Normal morphology (NORM) Plt Morphology Comment Normal morphology (NORM) RBC Morph Comment Normal morphology (NORM) Discharge instruction Diet regular Activity as started Medications Current Medication(s) 3 Medication Instructions Recorded Confirmed Type Cholecalciferol (Vitamin D3) 1 cap PO DAILY #30 cap 01/31/14 10/03/17 History [Vitamin D3] atenolol 50 mg tablet 50 mg PO QD #90 tab 03/16/17 10/03/17 Rx esomeprazole magnesium 20 mg 20 mg PO QD #90 cap 03/16/17 10/03/17 Rx capsule,delayed release levothyroxine 50 mcg tablet 50 mcg PO QD #90 tab 03/16/17 10/03/17 Rx tolterodine ER 4 mg 4 mg PO QD #90 cap 03/16/17 10/03/17 Rx capsule,extended release 24 hr venlafaxine ER 75 mg 75 mg PO QDAY #90 cap 03/16/17 10/03/17 Rx capsule,extended release 24 hr potassium chloride ER 20 mEq 20 meq PO QDAY #1 tab 08/02/17 10/03/17 Rx tablet,extended release blood-glucose meter See Dose Instructions .ROUTE 08/04/17 Rx .MEDSUPPLY #1 ea lancets 33 gauge See Dose Instructions .ROUTE 08/06/17 08/06/17 Rx .MEDSUPPLY #100 ea blood sugar diagnostic strips See Dose Instructions .ROUTE 08/12/17 Rx .MEDSUPPLY #100 ea blood sugar diagnostic strips See Dose Instructions .ROUTE 08/12/17 Rx .MEDSUPPLY #50 ea blood glucose control, normal See Dose Instructions .ROUTE 08/18/17 Rx solution .MEDSUPPLY #1 ea lancets 30 gauge See Dose Instructions .ROUTE 08/18/17 Rx .MEDSUPPLY #100 ea Amoxicillin/Potassium Clav 1 ea PO BID #14 tab 10/06/17 Rx [Augmentin 875-125 Tablet] Follow-up with Dr. Walker in 1-2 weeks, with PCP in 1-2 weeks Condition at discharge was stable for discharge Exam - Vitals Vital Signs: Vital Signs Temperature 97.8 F Temperature Source Temporal Artery Scan Pulse Rate [Apical] 78 Pulse Rate [Pulse Oximeter 77 Right] Respiratory Rate 16 Blood Pressure [Right Arm] 130/58 Blood Pressure [Left Arm] 136/67 Pulse Ox 95 Oxygen Delivery Method Room Air Height 5 ft 4 in Weight 212 lb 8 oz - General General Appearance: No Acute Distress, Morbidly Obese - Head Head Exam: Normal Inspection - Eye Eye Exam: POSITIVE: Normal Appearance - ENT ENT Exam: POSITIVE: Normal Exam - Neck Neck Exam: Normal Inspection - Respiratory Respiratory Exam: POSITIVE: Clear to Auscultation - Bilaterally - Cardiovascular Cardiovascular Exam: POSITIVE: RRR - GI/Abdominal GI/Abdominal Exam: POSITIVE: Normal Bowel Sounds, Non Tender, Non Distended, Soft, No Organomegaly - Rectal Rectal Exam: POSITIVE: Deferred - External Exam: POSITIVE: Deferred Exam: POSITIVE: Deferred - Extremities Extremities Exam: POSITIVE: Normal Inspection - Back Back Exam: POSITIVE: Normal Inspection - Neurological Neurological Exam: POSITIVE: Alert, Oriented x 3, CN II-XII Intact, No Facial Droop, Speech Intact / Clear, Moves All Extremities Equally - Psychiatric Psychiatric Exam: POSITIVE: Normal Affect - Integumentary Integumentary Exam: POSITIVE: Normal Color Patient Problems - Patient Problem List (1) Colitis Status: Acute Code(s): K52.9 - Noninfective gastroenteritis and colitis, unspecified Category: Medical (2) UTI (urinary tract infection) Status: Acute Code(s): N39.0 - Urinary tract infection, site not specified Category: Medical (3) Hypomagnesemia Status: Acute Code(s): E83.42 - Hypomagnesemia Category: Medical (4) Hypokalemia Status: Acute Code(s): E87.6 - Hypokalemia Category: Medical (5) Hypothyroidism Status: Acute Code(s): E03.9 - Hypothyroidism, unspecified Category: Medical (6) Hypertension Status: Acute Code(s): I10 - Essential (primary) hypertension Category: Medical (7) Depression Status: Acute Onset Date: 07/13/13 Code(s): F32.9 - Major depressive disorder, single episode, unspecified Qualifiers: Depression Type: major depressive disorder Major depression recurrence: recurrent Active/Remission status: in full remission Qualified Code(s): F33.42 - Major depressive disorder, recurrent, in full remission Category: Medical
== END 2017-10-06 11:03 | disposition home or self-care (01) | DRG 690 ==
LOC: ER 17:21 → MED/SURG 21:52
PROVIDERS: ADMIT Internal Medicine; ATTEND Internal Medicine